=== PATIENT | female | born 1975 | race Caucasian/White ===

== ENCOUNTER 2018-06-29 10:47 | Emergency (ER) | payer OTHER ==
[~2018-06-29] VITALS: Ht 162.6 cm; Wt 109.1 kg
--- NOTE | 2018-06-29 12:11 | NUR ---
PT AMBULATORY TO ROOM FROM LOBBY
[2018-06-29 12:13] LABS: MICROSCOPIC INDICATED
--- NOTE | 2018-06-29 12:16 | NUR ---
pt to room 17. gown given. oriented to room for safety.
--- NOTE | 2018-06-29 12:17 | NUR ---
urine specimen in lab
[2018-06-29 12:30] LABS: CULTURE INDICATED? YES
--- NOTE | 2018-06-29 12:32 | NUR ---
Report from Eric BASS. Pt resting in bed, RAJWINDER, denies needs.
--- NOTE | 2018-06-29 12:42 | NUR ---
Dr. Crespo at bedside to evaluate pt.
[2018-06-29 12:50] VITALS: BP 122/80
== END 2018-06-29 13:31 | disposition home or self-care (01) ==
LOC: ED 12:40
DX: N30.00 Acute cystitis without hematuria (principal); F17.200 Nicotine dependence, unspecified, uncomplicated
CPT/HCPCS: 81001; 87077; 87086; 87147; 87186; 99283